=== PATIENT | male | born 1975 | race Hispanic/Latino ===

== ENCOUNTER 2021-10-29 22:22 | Emergency (ER) | payer SELFPAY ==
--- NOTE | 2021-10-30 04:13 | ER ---
Nurse's Notes [facility] Name: Dorian Lawrence Age: 46 yrs Sex: Male : 1975 Arrival Date: 10/29/2021 Time: 22:25 Bed Treatment Private MD: Diagnosis: Presentation: 10/29 23:35 Chief complaint: Patient states: "I was cleaning the 4 [place] and a shocking pain I vc1 looked down and say a spider. I feel like it is going numb up my leg.". Coronavirus screen: Vaccine status: Patient reports being unvaccinated. At this time, the client does not indicate any symptoms associated with coronavirus-19. Ebola Screen: No symptoms or risks identified at this time. Initial Sepsis Screen: Does the patient meet any 2 criteria? No. Patient's initial sepsis screen is negative. Does the patient have a suspected source of infection? No. Patient's initial sepsis screen is negative. Risk Assessment: Do you want to hurt yourself or someone else? Patient reports no desire to harm self or others. Onset of symptoms was October 29, 2021. 23:35 Method Of Arrival: Ambulatory vc1 23:35 Acuity: JODI 4 vc1 Triage Assessment: 23:38 Bite description: bite sustained to ball of right foot by a spider, animal information: vc1 vaccination(s) is not applicable. General: Appears in no apparent distress. uncomfortable, Behavior is calm, cooperative, appropriate for age. Pain: Complains of pain in right foot Pain radiates to right leg. EENT: No deficits noted. Neuro: Level of Consciousness is awake, alert, obeys commands, Oriented to person, place, time, situation, Appropriate for age Reports numbness in right foot. Cardiovascular: Capillary refill < 3 seconds Patient's skin is warm and dry. Respiratory: Airway is patent Respiratory effort is even, unlabored, Respiratory pattern is regular, symmetrical. GI: No deficits noted. : No deficits noted. Derm: Wound noted ball of right foot. Musculoskeletal: No deficits noted. Historical: - Allergies: 23:38 No Known Allergies; vc1 - PMHx: 23:38 High Cholesterol; vc1 - PSHx: 23:38 None; vc1 - Immunization history:: Adult Immunizations up to date, Client reports having NOT received the Covid vaccine. - Social history:: Smoking status: Patient denies any tobacco usage or history of. Vital Signs: 23:35 BP 134 / 85; Pulse 75; Resp 18; Temp 98.1; Pulse Ox 100% ; Weight 92.99 kg; Height 5 vc1 ft. 8 in. (172.72 cm); Pain 5/10; 23:35 Body Mass Index 31.17 (92.99 kg, 172.72 cm) vc1 ED Course: 22:25 Patient arrived in ED. bp1 23:37 Triage completed. vc1 23:39 Arm band placed on left wrist. vc1 10/30 04:12 Patient's name was called from ER lobby. No response. Unable to locate patient. Will bb disposition as left without being seen by a provider. Administered Medications: No medications were administered Outcome: 04:12 Patient left the ED. bb Signatures: Lala Arnold RN RN bb Cailin Bowser bp1 Siomara Puga RN RN vc1
[2021-10-30 04:18] VITALS: BP 134/85; TEMP 98.1; O2SAT 100
== END 2021-10-30 04:12 | disposition left against medical advice (07) ==
LOC: ER 22:22
DX: Z02.9 Encounter for administrative examinations, unspecified (principal)
CPT/HCPCS: 99281